=== PATIENT | female | born 1945 | race Two or more races ===

== ENCOUNTER → 2021-09-10 | Outpatient (CLI) | payer OTHER ==
[~2021-09-10] MED LIST: BACLOFEN5 GM; DIOVAN40 MG; DIPYRIDAMOLE; LEVOTHYROXINE SO1 GM; NEURONTIN250 MG/5 M; SIMVASTATIN5 MG; SYNTHROID50 MCG
== END | disposition home or self-care (01) ==
LOC: NUCLEAR 07:52
PROVIDERS: ATTEND Internal Medicine Cardiovascular Disease
DX: I25.10 Atherosclerotic heart disease of native coronary artery without angina pectoris (principal); I20.9 Angina pectoris, unspecified
CPT/HCPCS: 78452; 93017; A9500; J1250